=== PATIENT | female | born 1935 | race Caucasian/White ===

== ENCOUNTER 2017-06-01 20:25 | Emergency (ER) | payer OTHER ==
[~2017-06-01] VITALS: Ht 149.9 cm; Wt 59.0 kg
--- NOTE | ~2017-06-01 | EKG ---
[place] [address] [facility] [place] [address] ELECTROCARDIOGRAM REPORT Name: EARNEST SOUSA [id number] Admission: 06/01/17 Attend Phys: Discharge: 06/01/17 Date of : 37 Report #: [id number] THIS REPORT FOR: //name// [facility] ED Test Date: 2017-06-01 Test Time: 21:06:25 Pat Name: EARNEST SOUSA Department: Room: Gender: F Food Sampler: WILMER : 1935 Requested By: Maged Easley Order Number: [id number] MD: Doug Gamez Measurements Intervals [place] Rate: 74 P: 28 TX: 218 QRS: -20 QRSD: 97 T: -5 QT: 416 QTc: 462 Interpretive Statements Sinus rhythm Borderline prolonged TX interval Left ventricular hypertrophy Compared to ECG 10/14/2015 17:29:20 No significant change was found Electronically Signed On 06-03-2017 8:45:48 CDT by Doug Gamez [email or web address] <ELECTRONICALLY SIGNED> By: Doug Gamez MD, [facility] 06/03/17 0845 05 05 Doug Gamez MD, [facility] /EPI
[~2017-06-01 20:25] MED LIST: APAP500 PO; ASPIR 8181 MG PO; BACTRIM DS TAB1 EACH PO; DULCOLAX5 MG PO; GLUCOSAMINE &1 EACH PO; IBUPROFEN 200200 M1 PO; LASIX 20 MG TAB20 MG PO; METHIMAZOLE5 MG PO; ONDANSETRON HCL4 M2 PO; PHENERGAN 25 MG25 M1 PO; PRILOSEC 20 MG20 MG PO; PROMS25 WY RECTAL; RESTORIL15 MG PO; SOMA250 MG PO; TOPROL XL25 MG PO; TRANYLCYPROMINE 10 MG PO
[2017-06-01 21:09] LABS: EOSINOPHILS 3.6 % (0.0-3.0); HEMATOCRIT 41.3 % (37.0-47.0); HEMOGLOBIN 13.8 gm/dL (12.0-15.0); LYMPHOCYTES 41.2 % (24.0-44.0); MCH 29.9 pg (26.0-34.0); MCHC 33.3 g/dL (28.0-37.0); MCV 89.6 fL (80.0-100.0); PLATELET COUNT 256 thou/uL (150-400); POLYS 43.2 % (36.0-66.0); RBC 4.61 mil/uL (4.20-5.00); RDW 14.7 % (10.5-14.5)
[2017-06-01 21:12] LABS: MANUAL DIFF NO
[2017-06-01 21:19] LABS: ANION GAP 9 mmol/L (7-16); BUN 13 mg/dL (7-18); CALCIUM 8.7 mg/dL (8.5-10.1); CHLORIDE 107 mmol/L (98-107); CO2 30 mmol/L (21-32); CREATININE 0.9 mg/dL (0.6-1.0); GLUCOSE 108 mg/dL (74-106); POTASSIUM 3.5 mmol/L (3.5-5.1); SODIUM 146 mmol/L (136-145)
[2017-06-01 21:30] LABS: ALBUMIN 3.8 g/dL (3.4-5.0); ALKALINE PHOSPHATASE 99 U/L (46-116); SGOT 23 U/L (15-37); SGPT 18 U/L (30-65); TOTAL BILIRUBIN 0.4 mg/dL (<0.1-1.0); TOTAL PROTEIN 7.4 g/dL (6.4-8.2); TROPONIN-I < 0.04 ng/mL (<0.04-0.07)
[2017-06-01 21:38] LABS: DIRECT BILIRUBIN < 0.1 mg/dL (<0.1-0.3)
[2017-06-01 23:31] VITALS: BP 159/81
== END 2017-06-01 23:51 | disposition home or self-care (01) ==
LOC: ER 20:25
PROVIDERS: Physician Assistant
DX: I10 Essential (primary) hypertension (principal); K21.9 Gastro-esophageal reflux disease without esophagitis; F32.9 Major depressive disorder, single episode, unspecified; Z98.890 Other specified postprocedural states; Z88.5 Allergy status to narcotic agent

== ENCOUNTER 2021-02-02 16:15 | Emergency (ER) | payer OTHER ==
[~2021-02-02] VITALS: Ht 152.4 cm; Wt 57.1 kg
[2021-02-02 16:36] LABS: URINE BILIRUBIN NEGATIVE (Negative); URINE BLOOD NEGATIVE (Negative); URINE CLARITY CLEAR; URINE COLOR YELLOW; URINE GLUCOSE-RANDOM* NEGATIVE (Negative); URINE KETONES TRACE (Negative); URINE PROTEIN (DIPSTICK) NEGATIVE (Negative); URINE UROBILINOGEN 0.2 E.U./dl (0.2-1.0)
[2021-02-02 16:40] LABS: HEMATOCRIT 43.3 % (37.0-47.0); HEMOGLOBIN 13.9 gm/dL (12.0-15.0); MCH 29.3 pg (26.0-34.0); MCHC 32.1 g/dL (28.0-37.0); MCV 91.3 fL (80.0-100.0); RBC 4.74 mil/uL (4.20-5.00)
[2021-02-02 16:42] LABS: URINE LEUKOCYTES-REFLEX 2+ (Negative); URINE NITRITE-REFLEX POSITIVE (Negative)
[2021-02-02 16:49] LABS: CALCIUM 8.8 mg/dL (8.5-10.1); CREATININE 1.2 mg/dL (0.6-1.0); POTASSIUM 4.3 mmol/L (3.5-5.1)
[2021-02-02] MEDS ORDERED: SERTRALINE HCL100 MG PO (16:50)
[2021-02-02] MEDS ORDERED: BUSPIRONE HCL5 MG PO (16:50)
[2021-02-02 16:53] LABS: BACTERIA-REFLEX >30 Many /HPF (None Seen); CASTS None Seen /LPF (None Seen); CRYSTALS None Seen /LPF (None Seen); SQUAMOUS >10 Many /LPF (0-3); URINE RBC None Seen /HPF (0-2); URINE WBC-REFLEX >25 Many /HPF (0-5)
[2021-02-02 16:55] LABS: ALBUMIN 3.7 g/dL (3.4-5.0); TOTAL BILIRUBIN 0.5 mg/dL (0.2-1.0); TOTAL PROTEIN 7.4 g/dL (6.4-8.2)
[2021-02-02 20:10] VITALS: BP 167/107
--- NOTE | 2021-02-03 20:59 | H ---
[facility] [place] [address] HISTORY AND PHYSICAL Name: EARNEST SOUSA Room #: DEP [facility]..#: [id number] Admission: 02/02/21 Attend Phys: Discharge: 02/02/21 Date of : 37 Report #: [id number] THIS REPORT FOR: cc: CANDACE VERNON Physician not on staff Aj Kimbrough DO ~ DATE OF SERVICE: 02/02/2021 INPATIENT PSYCHIATRIC EVALUATION ATTENDING PSYCHIATRIST: Aj Kimbrough DO. DOG WALKER: Tk White MD and the hospitalist team. REASON FOR ADMISSION: SI and increased depression. SOURCES OF INFORMATION: Interview with the patient, Biomedical Equipment Support Specialist from [facility] also chart reviewed from the ER. HISTORY OF PRESENT ILLNESS: An 85-year-old female recently 3 [place] ago in [place] [facility]. Apparently, her primary care nurse practitioner referred her for psychiatric admission after she admitted to suicidal ideation today. She reported to the ER as well, and since her about 3 months ago, she has been very depressed. In the past, she has suffered from depression for many years, which is managed with scheduled alprazolam. Apparently, there was a change in PCP, as her previous one Dr. Hinton due to COVID, she was started on Zoloft, tapered up to 100 mg daily 2 weeks ago. She was also started on BuSpar. She did not notice any improvement in her symptoms. She states she sleeps well. She does not have a suicide plan, but states that she wishes she was not alive frequently. She says every night when she goes to bed, she hopes not to wake up. No history of prior psychiatric admissions. She denied recent illnesses. MEDICAL AND SURGICAL HISTORY: Appendectomy 14 years old, right breast infection 25 years ago, right knee surgery x 4, left knee surgery x 1 due to injury 15 years ago, 2 normal pregnancies, she has 2 adult daughters, open reduction and internal fixation of right hand with plates and screws. MEDICAL PROBLEMS: Include GERD. PSYCHIATRIC HISTORY: Depression. REPORTED MEDICATIONS: Soma 350 mg p.o. b.i.d., omeprazole 20 mg p.o. daily, glucosamine-= chondroitin, tranylcypromine 20 mg p.o. daily, I am not sure that [address] [address] HISTORY AND PHYSICAL Name: EARNEST SOUSA Room #: DEP Kp#: [id number] Admission: 02/02/21 Attend Phys: Discharge: 02/02/21 Date of : 37 Report #: [id number] is correct on the tranylcypromine, aspirin 81 mg oral daily, metoprolol succinate 25 mg oral daily, acetaminophen 500 mg p.o. q. 4, ibuprofen, methimazole, temazepam. Again, we will have to get clarification on this medication list. ALLERGIES: HYDROCODONE AND CODEINE, REACTION IS NOT SPECIFIED. REVIEW OF SYSTEMS: Denied recent illness. Denies headache. Denies visual changes, chest pain. Denies shortness of breath. Denied abdominal pain, diarrhea, nausea, vomiting or diarrhea. Denies constipation. Denies urinary symptoms. Otherwise, negative brief 10-point. Weight 57.15 kilos, height 152.4 cm, BMI 24.6. LABORATORY DATA: Hematology: H and H 13.9 and 43.2, white count 9.0, platelet count 407. Chemistry: Sodium 140, potassium 4.3, chloride 106, bicarbonate 25, anion gap 9, BUN 22, creatinine 1.2, estimated GFR 43, glucose 112, calcium 8.8, total bilirubin 0.5, AST 21, ALT 35, alkaline phosphatase 103, total protein 7.4, and albumin 3.7. TSH is 1.383. Urinalysis showed trace ketones, positive nitrites, 3+ leukocyte esterase, positive white blood cells, and positive bacteria. Urine culture has been triggered. PHYSICAL EXAMINATION: VITAL SIGNS: In the ER, temperature 36.6, pulse 77, respirations 16, BP 140/60, O2 sat 96%. MUSCULOSKELETAL: Seated upright on gurney in the ER. MENTAL STATUS EXAMINATION: This is a well-developed, ill-appearing female appearing nearly stated age, wearing glasses. Attention fair. Concentration fair. Speech is normal rate, volume and tone. Thought process and goal directed. Thought content focused on her depression. Recent of her . No psychomotor agitation. No psychomotor retardation. Endorsed SI, plan was to overdose on pills. Denied HI. Denied auditory, visual, or tactile hallucinations. Memory not formally tested. Insight limited. Judgment limited. Fund of knowledge average range. FORMULATION: An 85-year-old female who presented with SI from [place] at [place] on 1:1 now. DIAGNOSES: At this time, major depressive disorder, single episode, severe degree, grief. The patient's comorbidities include hypothyroidism, hypertension, arthrodesis. PLAN: If COVID PCR comes back negative, proceed with admission to [facility]. Likely, we will maintain [address] [address] HISTORY AND PHYSICAL Name: EARNEST SOUSA Room #: DEP [facility]#: [id number] Admission: 02/02/21 Attend Phys: Discharge: 02/02/21 Date of : 37 Report #: [id number] her Restoril. I am not sure that she is taking tranylcypromine. I would like to get her on probably venlafaxine. I do not think the buspirone was added much to the picture, so we will discontinue that. We will get additional social history screening for dementia. ESTIMATED LENGTH OF STAY: 7-10 days. STRENGTHS: She is insured. She has had a [facility] kind of facility. WEAKNESSES: Advancing age, medical comorbidities. <ELECTRONICALLY SIGNED> By: Aj Kimbrough DO 02/03/212058 26 48 Aj Kimbrough DO /nt
== END 2021-02-02 20:10 ==
LOC: EDBD 16:15 → ER 16:15
PROVIDERS: Nurse Practitioner Family
DX: F32.9 Major depressive disorder, single episode, unspecified (principal); K21.9 Gastro-esophageal reflux disease without esophagitis; Z90.49 Acquired absence of other specified parts of digestive tract; Z79.899 Other long term (current) drug therapy; Z79.82 Long term (current) use of aspirin; Z79.1 Long term (current) use of non-steroidal anti-inflammatories (NSAID); Z88.5 Allergy status to narcotic agent; Z20.822 Contact with and (suspected) exposure to COVID-19

== ENCOUNTER 2021-02-02 19:43 | Inpatient (IN) | payer OTHER ==
[~2021-02-02] VITALS: Ht 152.4 cm; Wt 54.9 kg
[~2021-02-02 19:43] MED LIST changes: +BUSPIRONE HCL5 MG PO; +SERTRALINE HCL100 MG PO
[2021-02-02 20:45] VITALS: BP 151/76
--- NOTE | 2021-02-03 01:21 | NUR ---
RECEIVED REPORT FROM [facility]. PT ARRIVED ON UNIT 2019 PT AAOX4, VS B/P 151/76, P 72, R 18, T 98.5, 02 SAT 97% RA RR EVEN AND NONLABORED ON RA; HT S1 S2, RR, LUNGS CLEAR, ABD ACTIVE. PT PRESENTS WITH SADNESS OVER THE LOSE OF HER . PT DENIES PAIN AND SI/HI, PT DID REPORT THAT SHE FEELS NO RACHID IN LIVING AT THIS TIME. PT HX HTN, GERD, DEPRESSION. HCP Donell OLVERA MD CONSULTED AND ORDERS RECEIVED. HCP Sha TADEO NP CONTACTED. ZERO S/S OF ACUTE DISTRESS NOTED, PT WILL CONTINUE TO BE MONITOR PER [facility] PROTOCOL.
[2021-02-03 09:37] VITALS: BP 145/73
[2021-02-03 10:12] VITALS: BP 145/73
--- NOTE | 2021-02-03 11:20 | NUR ---
1120 RESUMMED CARE OF PATIENT FROM OVERNIGHT SHIFT THIS AM, PATIENT IN DAY ROOM QUIET. PATIENT ATE BREAKFAST TOOK MEDICATION WITHOUT INCIDENCE; PATIENT DENIES SI/HI/AH/VH. PATIENT IS ALERT ORIENTED TIMES 4 PATIENT STATES ALL OF THE YELLING FROM OTHER PATIENTS IS GETTING ON HER NERVES. PATIENTS ABDOMEN SOFT BOWEL SOUNDS PRESENT PATIENTS LUNGS CLEAR. PATIENT STATES SHE HAS SOME DEPRESSION DUE TO PASSING AWAY. WILL CONTINUE TO MONITOR PATIENT FOR SAFETY AND BEHAVIORS.
--- NOTE | 2021-02-03 13:15 | NUR ---
Assess due to admit to [facility] with depression. Visit with pt prior to lunch meal, states appetite is getting better. Had lost about ll lb (usual wt 132 lb) following recent passing of spouse about 3 mon ago. Was smiling during visit, able to acknowledge alternative menu options and aware snacks are also available if desired. Voiced some concerns for diarrhea. Low nutrition risk but continue to follow wts and intake trends weekly.
[2021-02-03 19:19] VITALS: BP 163/82
[2021-02-03 19:40] VITALS: BP 163/82
--- NOTE | 2021-02-04 03:19 | NUR ---
PATIENT STAYED IN ROOM TONIGHT. ON ASSESSMENT, SHE WAS VERY ANXIOUS AND STATING SHE FELT LIKE HER HEART WAS RACING AND SHE WAS TALKING SO FAST THAT HER BREATHING WAS FAST. I LISTENED TO HER HEART AND CHECKED HER PULSE. HEART REGULAR AND PULSE 76 AND 02 SAT WAS 98. HAD PATIENT TAKE SOME DEEP BREATHS AND AND DISCUSSED WHAT SHE WAS FEELING. SHE STATES THAT SHE WASN'T FEELING ANXIOUS ABOUT HER SPOUSE'S . SHE STATES SHE HASN'T SLEPT VERY WELL FOR A WHILE AND SHE FEELS TIRED AND WIRED. SHE STATES HER MIND WON'T SHUT OFF AND IT'S MAKING HER FEEL LIKE SHE IS GOING CRAZY. AFTER TALKING TO PATIENT SHE BECAME MORE RELAXED. I GAVE HER NIGHT TIME PILLS TO HER WHICH INCLUDED A MED FOR SLEEP PROMOTION. SHE WAS ALSO C/O RIGHT LEG WAS ACHING AND HURTING AND SHE HAD NUMBNESS AND TINGLING FEELING IN BOTH LOWER EXTREMITIES DURING THE TIME SHE WAS HIGHLY ANXIOUS. VICODIN GIVEN TO HER FOR THIS. PATIENT ALSO STATES SHE HAD LARGE STOOL OF DIARHEA THIS AM AND THEN ONE AFTER SUPPER WHICH WAS SMALLER. EXPLAINED THAT ANXIETY CAN CAUSE IBS AT TIMES AND WE WILL CONTINUE TO MONITOR HOW MANY DIARHEA STOOLS SHE HAS BEEN HAVING. PT HAS BEEN RESTING WITH EYES CLOSED ALL EVENING. NO SIGNS OF DISTRESS. BREATHING REGULAR AND UNLABORED. BED IN LOW POSITION. ROUTINE ROUNDS TO ASSESS SAFETY AND STATUS OF PATIENT.
[2021-02-04 11:09] VITALS: BP 138/83
--- NOTE | 2021-02-04 12:40 | NUR ---
PATIENT WAS IN BATHROOM GROOMING SELF WHEN CARE ASSUMED. SHE LATER AMBULATES TO DAYROOM WITH ASSIST OF OH NAPIER, GAIT SLIGHTLY UNSTEADY. PATIENT IS ALERT, AND ORIENTED X 3-4, ABLE TO VOICE NEED. PATIENT TOOK ALL MEDICATION WHOLE WITHOUT DIFFICULTY, SHE IS EATING MEALS, AND DRIKING FLUID WELL. PATIENT DENIES SUICIDAL/HOMICIDAL IDEATION, SHE RATES DEPRESSION 5/10, RATES ANXIETY 7/10, RATES PAIN 8/10, BOTH SCHEDULED, AND PRN HYDROCONE GIVEN WITH MINIMAL EFFECT, PAIN DECREASED TO 7/10 UPON REASSESSMENT. PATIENT STARTED ON CEFTIN ANTIBIOTIC TODAY FOR UTI, NO S&S OF ADVERSE EFFECT NOTED. MOOD IS DEPRESSED,/CALM, AFFECT IS EUTHYMIC. PATIENT PARTICIPATES IN GROUP THERAPY, NO SIGN OF ACUTE DISTRESS NOTED AT THIS TIME, WILL MONITOR FOR SAFETY.
--- NOTE | 2021-02-04 16:04 | NUR ---
It was reported to SW by the psych team that her SLUMS score is 22/30. SW met with pt 1-to-1 to check in. Pt admitted that she had a panic attack yesterday. She was teary-eyed and admitted that she is still experiencing SI. She said that her was her partner in covid, and her doctor for 30 years from complication with covid. She said she is overwhelmed. She admitted that when Dr. Kimbrough told her that he probably will discharge her Tuesday, she became anxious. She said she usually does not ask for help, but she knows she has to. She admtted that if she went home now, she probably will take pills and attempt suicide because she feels like she has nothing left, and there is nothing that will help. SW guided pt through a breathing exercise and talked with her about options. Pt said she has been thinking about moving to [place] with her sister; she is used to having her to help her with decisions. SW processed this decision with pt and she said she does want to move to [place]. Pt mentioned her knees hurting and SW asked what she thought about going to a skilled rehab with [facility]; SW advised that not only that can help with mobility but it will give her more time to be around others as opposed to being in her apartment alone. Which will shorten the time she has left before going to [place]. She said she would like to think about it, but is okay with SW relaying this idea to Kaylan Nicole. SW talked with pt about grief and loss, and about what is normal; SW advised that the decrease in appetite and the inability to sleep are a part of grief. However, being able to eat more and getting more sleep may help her feel better. Pt agreed. SW provided an update to Dr. Kimbrough who agreed that pt needs to stay at least through the weekend. He also said he would order PT/OT eval for pt. SW team will continue to follow pt during her stay on this unit.
[2021-02-04 19:34] VITALS: BP 157/74
--- NOTE | 2021-02-04 23:31 | NUR ---
Alert and orientated X4. Calm, pleasant and compliant. Denies current SI but states she did have plan to take her 's sleeping pills. Denies HI. Reports pain of 7/10 in knees and then was asleep when reassessed for pain X2. Ambulatory with regular, steady gait. Breath sounds clear. Reg HR auscultated. Color pink with brisk capillary refill and palpable peripheral pulses. Independent with voiding. States she had BM yesterday. Active bowel sounds over soft, rounded abdomen. 2315 Angry r/t pain and states nurse did not bring pain med as agreed (she was sleeping). States pain in knees is now a 8 or 9. Oxycodone given PO per prn order. Asleep when reassessed. No s/o distress.
[2021-02-05 10:07] VITALS: BP 125/77
--- NOTE | 2021-02-05 15:13 | NUR ---
HAS BEEN VISIBLE IN DAYROOM ATTENDING SCHEDULED GROUPS-SOCIAL WITH FEMALE PEERS DURING FREE TIME. AFFECT CONSTRICTED. DENIES SI/SH/HI. DENIES DISTURBANCE OF APPETITE -DOES REPORT SOME INITAL INSOMNIA. ORIENTED X3.GAIT STEADY WITH USE OF ROLLER WALKER. REPORTS KNEE PAIN RATED A 7 ON 1-10 WITH MINIMAL PAIN RELIEF REPORTED AFTER ADMINISTRATION OF SCHEULED IBUPROFEN-HYDROCODONE 5/325 GIVEN PO PRN FOR KNEE PAIN RATED AN 8 ON 1-10 SCALE,
[2021-02-05 19:37] VITALS: BP 137/65
--- NOTE | 2021-02-06 02:17 | NUR ---
ASSUMED CARE FROM DAY SHIFT PT RESTING WELL IN GERICHAIR AND THEN IN BED, TOOK PO MEDICATION IN PUDDING. PT RESTING WELL EMANUEL DIAZ ROUNDING. WILL REPORT CHANGES OR ABNORMAL FINDINGS.
--- NOTE | 2021-02-06 02:54 | NUR ---
ASSUMED CARE FROM DAY SHIFT PT UP ANBULATING IN DAY ROOM AND HALLWAYS WITH WALKER , NO CONCERNS VOICED THER THAN WANTING SLEEPING PILL FOR REST.. PT CALM AND COOPERATIVE. PT RESTING WELL THROUGHOUT FREQ ROUNDING. NO CHANGES NOTED IN PT ASSESSMENT,WILL CONITNUE WITH CURRENT PLAN OF CARE.
[2021-02-06 09:58] VITALS: BP 149/75
--- NOTE | 2021-02-06 11:45 | NUR ---
After tx team , pt came to and explained that she has been thinking, and she and her sister decided she will be moving to [place]. Her sister is coming this weekend, and wants to pick her up Tuesday afternoon. Pt was smiling when she left office. contacted Dr. Kimbrough and provided an update. okayed the plan pending pt is no longer experiencing SI. team will continue to follow pt during her stay on this unit.
[2021-02-06 11:48] VITALS: BP 149/75
--- NOTE | 2021-02-06 14:04 | NUR ---
Alert and orientated X 4. Denies SI/HI. Sad, flat affect. Reports pain of 7 in knees when walking, no pain at rest. Breath sounds clear. Reg HR auscultated. Color pink with brisk capillary refill and palpable peripheral pulses. Independent with voiding. Active bowel sounds over soft, rounded abdomen. Reports BM yesterday. Ambulates with regular, steady gait. Currently in group, no s/o distress.
[2021-02-06 19:54] VITALS: BP 151/70
--- NOTE | 2021-02-06 22:30 | NUR ---
PT SITTING AT TABLE WITH FEMALE PEERS TALKING AND COLORING. FLAT AFFECT, GOOD EYE CONTACT. PT AMBULATES WITH WALKER STEADY. COMPLIANT WITH MEDS. PRN FOR SLEEP PROVIDED. PT HAD HS SNACK.
[2021-02-07 08:30] VITALS: BP 146/70
--- NOTE | 2021-02-07 13:02 | NUR ---
Alert and orientated X4. Calm, cooperative and compliant. States she is concerned about housing when she is discharged. States she is going back to [place] but then moving to [place] to live with her sister. Denies SI/HI. Breath sounds clear. Reg HR auscultated. Color pink with brisk capillary refill and palpable peripheral pulses. Independent with voiding. No BM for 4 days, refused milk of magnesium at breakfast but then took after lunch. Active bowel sounds over soft, rounded abdomen. Ambulates with walker with regular, steady gait. States pain in knees is 6-9 when walking, 0 when seated. Pain improves after Tylenol. 1310 Reports large brown formed stool. Interacting with peers and staff.
[2021-02-07 20:06] VITALS: BP 151/73
--- NOTE | 2021-02-08 03:49 | NUR ---
Assumed care on 02/08/21 @ 0001, in bed, eyes closed, respirations even and unlabored. Bed in low position, will continue to monitor as per unit protocol for safety and comfort.
[2021-02-08 10:00] VITALS: BP 143/95
--- NOTE | 2021-02-08 13:39 | NUR ---
DENIES SI/SH DURING AM ASSESSMENT 10/31 INTERACTION WITH THIS RN. HAS BEEN VISIBLE ON UNIT STRUCTURES FREE TIME COLORING OR VISITING WITH PEERS IN DAYROOM-AFFECT REMAINS SLIGHTLY CONSTRICTED BUT IS SOACIAL/SPONTANEOUS CONVERSATION WITH PEER GROUP. GAIT STEADY WITH USE OF ROLLER WALKER. DESCRIBES DEPRESSION/ANXIETY SYMPTOMS "PRETTY MUCH ABOUT THE SAME" ON ADMIT. REPORTS FEELING "GOOD BUT NERVOUS" ABOUT DC TOMORROW WITH PLAN TO MOVE TO [place] TO BE CLOSER TO SISTER. DENIES DISTURBANCE OF SLEEP,APPETITE. DOES REPORT CHRONIC KNEE PAIN RATED A 4-5 BUT DOES STATE SCHEDULED ANALGESICS ARE "HELPING SOME"
[2021-02-08 20:30] VITALS: BP 134/73
[2021-02-08 21:12] VITALS: BP 134/73
--- NOTE | 2021-02-09 02:39 | NUR ---
PT WAS SITTING UP THIS EVENING WITH OTHER PATIENTS IN THE DINING ROOM AND VISITING. SHE HAS BEEN CALM AND NO BEHAVIORS. WHEN ASKED SHE STATES SHE IS EXCITED TO BE DISCHARGING LATER TODAY. SHE TOOK HER MEDS WHOLE WITH WATER. SHE HAD HER NORCO AND TEMAZEPAM PER REQUEST FOR BED. RIGHT KNEE WITH ACHING AT 7/10. PATIENT HAS BEEN SLEEPING THRU THE NIGHT. SHE IS INDEPENDENT WITH CARES AND UP WITH WALKER. SHE DENIES SI/HI/AVH. SHE IS A/0X4. ROUTINE ROUNDS TO ASSESS SAFETY AND STATUS OF PATIENT.
[2021-02-09 09:36] VITALS: BP 135/84
[2021-02-09] MEDS ORDERED: CEFUROXIME250 MG PO (11:44)
[2021-02-09] MEDS ORDERED: ZOLOFT 50 MG TA50 MG PO (11:47)
[2021-02-09] MEDS ORDERED: BUSPIRONE HCL5 MG PO (11:52)
[2021-02-09 12:19] VITALS: BP 149/75
--- NOTE | 2021-02-09 12:44 | NUR ---
SUSIE spoke with pt's sister Darleen briefly this morning to introduce self. Darleen confirmed she will be helping pt gather all of her things, and then moving her to [place] in the next few weeks. SUSIE created a SW handout for pt with her nearest [facility] info on it. SUSIE gave handout to pt. SUSIE gave pt's nurse a copy to put in her discharge packet. No other needs for SW team to address at this time.
--- NOTE | 2021-02-09 13:56 | NUR ---
DISCHARGE INSTRUCTIONS INCLUDING MEDICATIONS,RX PROVIDED AND FOLLOW UP REVIEWED WITH PT AND SISTER PRIOR TO DISCHARGE-PT HAS MULTIPLE QUESTIONS REGARDING RX AND REQUESTING ADDITIONAL RX FOR GRACE POWERS-DR CARCAMO NOTIFIED AND RX PROVIDED. PT DENIES SI/SH/HI AT TIME OF DC-STATES IS EAGER TO GO HOME WITH PLANS TO STAY WITH SISTER IN [place] UNTIL ABLE TO GET INTO ASSISTED LIVING FACILITY. PT DC'D AT APPROX 1330 VIA WC-ALL PERSONALL BELONGINGS SENT-ACCOMPNIED BY NURSING STAFF AND SISTER TO PRIVATE VEHICLE
--- NOTE | 2021-02-11 21:33 | D ---
[facility] [place] [address] DISCHARGE SUMMARY Name: EARNEST SOUSA Room #: 527A-A [facility] IN M.R.#: [id number] Admission: 02/02/21 Attend Phys: Aj Kimbrough DO Discharge: 02/09/21 Date of : 37 Report #: [id number] THIS REPORT FOR: cc: CANDACE VERNON Physician not on staff Aj Kimbrough DO ~ DATE OF SERVICE: 02/09/2021 INPATIENT PSYCHIATRIC DISCHARGE SUMMARY ATTENDING PSYCHIATRIST: Aj Kimbrough DO. GEOLOGICAL SURVEY FIELD ASSISTANT: Fatemeh Pressley MD DISCHARGE DIAGNOSES: Mild neurocognitive disorder, major depressive disorder, single episode, severe degree, improved, recent grief. DISCHARGE PLAN: The patient is discharging back to independent living where she will be staying with her sister, will be packing up and then she is going to be going to [place] near [place] where she is going to live in assisted living. DIET: Regular. ACTIVITY LEVEL: As tolerated. No alcohol, no illicit drugs. LABORATORY DATA: Significant laboratories this admission from 02/02/2021. Hematology: H and H 13.9 and 43.3, white count 9.0, platelet count 407. Chemistries were grossly normal except BUN was 22, creatinine was 1.2, glucose 112. TSH normal at 1.383. Urinalysis showed positive nitrites, trace ketones, bacteria. Microbiology was positive for Klebsiella pneumoniae. COVID-19 PCR serology was negative. DISCHARGE MEDICATIONS: Soma 350 mg oral twice daily recommended that be taken on p.r.n. basis, omeprazole 20 mg oral daily for GERD, aspirin 81 mg oral daily for cardioprotection and sinus muscle relaxation, metoprolol succinate 25 mg oral daily, methimazole 2.5 mg oral daily, cefuroxime which is Ceftin 250 mg oral twice daily for 5 more days, sertraline 125 mg oral daily, this was raised from 100 mg at this admission, and buspirone 5 mg oral 3 times a day, which was raised from b.i.d. at admission. REASON FOR PSYCHIATRIC ADMISSION: An 85-year-old female, who is recently , was in an independent living at [facility], referred over by her media sales executive. She has been very depressed. She had a change in PCP. Currently she admitted to suicidal ideation. HOSPITAL COURSE: The patient was admitted to Geriatric Psychiatry Unit. Her [address] [address] DISCHARGE SUMMARY Name: EARNEST SOUSA Room #: 527A-A [facility] IN [facility]#: [id number] Admission: 02/02/21 Attend Phys: Aj Kimbrough, Discharge: 02/09/21 Date of : 37 Report #: [id number] SLUMS test at . She had issues with recent grief. She has a sister in [place]. The patient herself did not have children. Recommendations were made for assisted living placement; this is agreeable, but she is going to live in [place]. Mood improved. No SI, no HI. PHYSICAL EXAMINATION: VITAL SIGNS: Temperature 35.3, pulse 86, respirations 18, BP 149/75, O2 sat 98%. MUSCULOSKELETAL: Assisted gait with walker. Normal station. MENTAL STATUS EXAMINATION: This is a well-developed female, appearing stated age. Attention intact. Concentration intact. Speech is normal rate, volume and tone. Thought process: Linear and goal directed. Thought content focused on discharge. No SI, no HI. No hopelessness, no helplessness. Denied auditory, visual, or tactile hallucinations. Mood and affect was euthymic, congruent, reading her book on day of discharge. Insight and judgment are fair. Fund of knowledge above average. PROGNOSIS: For this patient is fair. She does continue on the path to assisted living, I think the social support will be in her favor. <ELECTRONICALLY SIGNED> By: Aj Kimbrough DO 02/11/213 35 Aj Kimbrough DO /nt
== END 2021-02-09 13:45 | disposition home or self-care (01) | DRG 885 ==
LOC: EDBD → SBH
PROVIDERS: ADMIT Psychiatry & Neurology Psychiatry; ATTEND Psychiatry & Neurology Psychiatry
DX: F32.2 Major depressive disorder, single episode, severe without psychotic features (principal); N17.9 Acute kidney failure, unspecified; N39.0 Urinary tract infection, site not specified; R45.851 Suicidal ideations; G31.84 Mild cognitive impairment of uncertain or unknown etiology; I10 Essential (primary) hypertension; E03.9 Hypothyroidism, unspecified; K21.9 Gastro-esophageal reflux disease without esophagitis; Z66 Do not resuscitate; Z20.822 Contact with and (suspected) exposure to COVID-19
CPT/HCPCS: 10880